=== PATIENT | male | born 1970 | race Hispanic/Latino ===

== ENCOUNTER 2022-06-29 08:01 | Emergency (ER) | payer BC ==
[2022-06-29 08:07] VITALS: BP 114/63
--- NOTE | 2022-06-29 08:51 | XRay Report ---
CHEST 2 VIEWS INDICATION / CLINICAL INFORMATION: Chest Pain. COMPARISON: None available. FINDINGS: SUPPORT DEVICES: None. HEART / MEDIASTINUM: No significant abnormality. LUNGS / PLEURA: No significant pulmonary or pleural abnormality. No pneumothorax. ADDITIONAL FINDINGS: No significant additional findings. IMPRESSION: 1. No acute findings. Signer Name: Macario Dunn Jr, MD Signed: 06/29/2022 8:46 AM Workstation Name: [id number]
[2022-06-29 10:34] LABS: Alanine Aminotransferase 24 units/L (7-56); Albumin 4.9 g/dL (3.9-5); BUN/Creatinine Ratio 12; Blood Urea Nitrogen 21 mg/dL (9-20); Calcium 9.9 mg/dL (8.4-10.2); Hemolysis Index 6
--- NOTE | 2022-06-29 10:59 | Electrocardiograph Report ---
[facility] Test Date: 2022-06-29 Test Time: 08:10:05 Pat Name: KARELY SOUTH JR Department: Room: Gender: M Health Care Consultant: AF : 1970 Requested By: ED DOC Order Number: [id number] Reading MD: Bobby Pérez Measurements Intervals [place] Rate: 86 P: 28 HI: 140 QRS: 56 QRSD: 93 T: 34 QT: 370 QTc: 442 Interpretive Statements Sinus rhythm No previous ECG available for comparison Electronically Signed On 06-29-2022 10:59:36 EDT by Bobby Pérez
== END 2022-06-30 00:13 | disposition left against medical advice (07) ==
LOC: ED 08:01
DX: R07.9 Chest pain, unspecified (principal); Z53.21 Procedure and treatment not carried out due to patient leaving prior to being seen by health care provider
CPT/HCPCS: 36415; 71046; 80048; 80053; 84484; 85730; 93005